=== PATIENT | female | born 1990 ===

== ENCOUNTER 2018-10-06 09:10 | Emergency (ER) | payer OTHER ==
[~2018-10-06] VITALS: Ht 177.8 cm; Wt 79.4 kg
[~2018-10-06 09:10] MED LIST: ZYNCOF 20-400120 ML PO; ZYRTEC10 MG PO
== END 2018-10-06 13:41 | disposition home or self-care (01) ==
LOC: ER 09:10
DX: K29.70 Gastritis, unspecified, without bleeding (principal); R10.11 Right upper quadrant pain